=== PATIENT | male | born 1995 | race Caucasian/White ===

== ENCOUNTER 2022-11-12 18:33 | Emergency (ER) | payer OTHER ==
[~2022-11-12] VITALS: Ht 177.8 cm; Wt 93.0 kg
== END 2022-11-12 19:33 | disposition home or self-care (01) ==
LOC: ER 18:33
DX: Z76.0 Encounter for issue of repeat prescription (principal); Z79.899 Other long term (current) drug therapy; F43.10 Post-traumatic stress disorder, unspecified
CPT/HCPCS: 99281; A9270

== ENCOUNTER 2023-04-12 16:17 | Emergency (ER) | payer OTHER ==
[~2023-04-12] VITALS: Ht 175.3 cm; Wt 90.7 kg
[2023-04-12 16:23] VITALS: BP 140/80
[2023-04-12] MEDS ORDERED: Bactrim Ds Tab1 EACH PO (16:27)
[2023-04-12] MEDS ORDERED: CEPH500 PO (16:27)
== END 2023-04-12 16:27 | disposition home or self-care (01) ==
LOC: ER 16:17
DX: L03.115 Cellulitis of right lower limb (principal); L02.415 Cutaneous abscess of right lower limb
CPT/HCPCS: 99282